=== PATIENT | female | born 1950 | race Hispanic/Latino ===

== ENCOUNTER 2019-06-11 21:07 | Emergency (ER) | payer MEDICARE ==
[2019-06-11 21:43] VITALS: BP 147/86
[2019-06-11] MEDS ORDERED: ONDANSETRON 4 MG ODT TAB ONE (22:42)
[2019-06-11] MEDS ORDERED: ONDANSETRON 4 MG ODT TAB PO ONE (22:44)
[2019-06-11] MEDS ORDERED: ONDANSETRON 4 MG/2 ML INJ ONE (22:49)
[2019-06-11] MEDS ORDERED: SODIUM CHLORIDE 0.9% 1000 ML 1,000 ML ONE (22:49)
[2019-06-11] MEDS ORDERED: SODIUM CHLORIDE 0.9% 1000 ML 1,000 ML IV ONE (23:08)
[2019-06-11] MEDS ORDERED: ONDANSETRON 4 MG/2 ML INJ IV ONE (23:10)
[2019-06-11 23:27] LABS: Basophils % (Auto) 0.2 % (0.0-1.8); Hemoglobin 12.2 gm/dl (11.8-15.2); Lymphocytes # (Auto) 1.4 K/mm3 (1.2-5.4); Lymphocytes % (Auto) 10.2 % (13.4-35.0); Mean Corpuscular HGB Conc 34 % (32-34); Mean Corpuscular Volume 92 fl (84-94); Monocytes # (Auto) 0.8 K/mm3 (0.0-0.8); Monocytes % (Auto) 5.9 % (0.0-7.3); Platelet Count 539 K/mm3 (140-440); Red Blood Count 3.93 M/mm3 (3.65-5.03); Red Cell Distribution Width 13.5 % (13.2-15.2)
[2019-06-11 23:46] LABS: Alanine Aminotransferase 22 units/L (7-56); Albumin 4.7 g/dL (3.9-5); BUN/Creatinine Ratio 27; Blood Urea Nitrogen 19 mg/dL (9-20); Calcium 9.8 mg/dL (8.4-10.2); Hemolysis Index 18
[2019-06-12] MEDS ORDERED: ONDANSETRON 4 MG/2 ML INJ IV ONE (02:01)
[2019-06-12] MEDS ORDERED: FAMOTIDINE 20 MG/2 ML INJ IV ONE (02:01)
[2019-06-12] MEDS ORDERED: LACTATED RINGERS 1,000 ML IV ONE (02:01)
[2019-06-12] MEDS ORDERED: MORPHINE 2 MG/1 ML INJ IV ONE (02:02)
--- NOTE | 2019-06-12 03:06 | Cat Scan Report ---
CT ABDOMEN AND PELVIS WITH CONTRAST INDICATION: Lower abdominal pain with nausea and vomiting. COMPARISON: No relevant prior imaging study available. TECHNIQUE: Axial, coronal and sagittal CT imaging of the abdomen and pelvis was performed after inje ction of 100 cc Omnipaque [address] scans at this location are performed using CT dose re duction for ALARA by means of automated exposure control. FINDINGS: LOWER CHEST: No significant abnormality. LIVER: No significant abnormality. BILIARY: No significant abnormality. PANCREAS: No significant abnormality. SPLEEN: No significant abnormality. ADRENALS: No significant abnormality. KIDNEYS AND URETERS: No significant abnormality. GI TRACT: No significant abnormality of the stomach, small bowel or colon. Unremarkable appendix. PERITONEUM: No free fluid. No free air. No fluid collection. LYMPH NODES: No significant adenopathy. VASCULATURE: The aorta and its visualized branches are patent and normal in caliber with mild aortoil iac atherosclerosis. URINARY BLADDER: No significant abnormality. REPRODUCTIVE ORGANS: Prior hysterectomy. No significant abnormality. ADDITIONAL FINDINGS: None. SKELETAL SYSTEM: No acute abnormality. There is moderate thoracolumbar scoliosis. IMPRESSION: No acute abnormality of the abdomen or pelvis. Signer Name: Khoa Miranda MD Signed: 06/12/2019 3:02 AM Workstation Name: [id number]
[2019-06-12 04:53] LABS: Bilirubin,Urine NEG (Negative); Blood,Urine NEG (Negative); Color,Urine Yellow (Yellow); Mucus,Urine 1+ /HPF; Protein,Urine <15 mg/dL mg/dL (Negative); Urobilinogen,Urine < 2.0 mg/dL (<2.0)
[2019-06-12] MEDS ORDERED: POTASSIUM CHLORIDE ER 20 MEQ TAB PO ONE (05:02)
--- NOTE | 2019-06-12 06:37 | Emergency Department Report ---
ED N/V/D HPI - General Chief complaint: Nausea/Vomiting/Diarrhea Stated complaint: NAUSEA AND VOMITING X 6 DAYS Source: patient, EMS Mode of arrival: Ambulatory Limitations: No Limitations - History of Present Illness Initial comments: Patient is 68-year-old white female with no past medical history except depression and anxiety who presents to the ED with complaint of acute onset persistent intermittent nausea and vomiting and diffuse abdominal pain, generalized weakness and lack of appetite for the last 6 days. Patient states that she has not been able to keep anything down especially in the last 24 hours. Patient denies dizziness, chest pain, shortness of breath, fever, chills, dysuria, diarrhea, urinary frequency and urgency, palpitations, syncope, headache, change in vision or vaginal bleeding. Patient states that no one else at home is at similar symptoms. MD complaint: nausea, vomiting, abdominal pain -: Sudden, days(s) (6) Description of Vomiting: food contents Associated Abdominal Pain: Yes (diffuse) Location: diffuse Radiation: none Severity: moderate Pain Scale: 6 Quality: cramping, aching, dull Consistency: intermittent Improves with: none Worsens with: vomiting Context: possible food poisoning Associated Symptoms: denies other symptoms, myalgias, loss of appetite, malaise, nausea/vomiting. denies: chest pain, diaphoresis, fever/chills, headaches, rash, dysuria, shortness of breath, syncope, weakness - Related Data Previous Rx's Medication Instructions Recorded Last Taken Type Dicyclomine [Bentyl] 20 mg PO Q6H PRN #24 tablet 06/12/19 Unknown Rx Famotidine [Pepcid] 20 mg PO Q12H #60 tablet 06/12/19 Unknown Rx Ondansetron [Zofran Odt] 4 mg PO Q6HR PRN #20 tab.rapdis 06/12/19 Unknown Rx Allergies Allergy/AdvReac Type Severity Reaction Status Date / Time No Known Allergies Allergy Verified 06/11/19 21:12 ED Review of Systems ROS: Stated complaint: NAUSEA AND VOMITING X 6 DAYS Other details as noted in HPI Constitutional: malaise, weakness. denies: chills, fever Eyes: denies: eye pain, eye discharge, vision change ENT: denies: ear pain, throat pain Respiratory: denies: cough, shortness of breath, wheezing Cardiovascular: denies: chest pain, palpitations Endocrine: no symptoms reported Gastrointestinal: abdominal pain, nausea, vomiting. denies: diarrhea Genitourinary: denies: urgency, dysuria, discharge Musculoskeletal: arthralgia, myalgia. denies: back pain, joint swelling Skin: denies: rash, lesions Neurological: denies: headache, weakness, paresthesias Psychiatric: denies: anxiety, depression Hematological/Lymphatic: denies: easy bleeding, easy bruising ED Past Medical Hx - Past Medical History Previous Medical History?: Yes Hx Psychiatric Treatment: Yes (depression) - Surgical History Past Surgical History?: No - Social History Smoking Status: Never Smoker Substance Use Type: None - Medications Home Medications: Home Medications Medication Instructions Recorded Confirmed Last Taken Type Dicyclomine [Bentyl] 20 mg PO Q6H PRN #24 tablet 06/12/19 Unknown Rx Famotidine [Pepcid] 20 mg PO Q12H #60 tablet 06/12/19 Unknown Rx Ondansetron [Zofran Odt] 4 mg PO Q6HR PRN #20 tab.rapdis 06/12/19 Unknown Rx ED Physical Exam - General Limitations: No Limitations General appearance: alert, in no apparent distress - Head Head exam: Present: atraumatic, normocephalic, normal inspection - Eye Eye exam: Present: normal appearance, PERRL, EOMI Pupils: Present: normal accommodation - ENT ENT exam: Present: normal exam, normal orophraynx, mucous membranes moist, TM's normal bilaterally, normal external ear exam - Neck Neck exam: Present: normal inspection, full ROM - Respiratory Respiratory exam: Present: normal lung sounds bilaterally. Absent: respiratory distress, wheezes, rales, rhonchi, chest wall tenderness, accessory muscle use, decreased breath sounds, prolonged expiratory - Cardiovascular Cardiovascular Exam: Present: regular rate, normal rhythm, normal heart sounds. Absent: systolic murmur, diastolic murmur, rubs, gallop - GI/Abdominal GI/Abdominal exam: Present: soft, normal bowel sounds. Absent: tenderness, guarding, hyperactive bowel sounds, hypoactive bowel sounds - Extremities Exam Extremities exam: Present: normal inspection, full ROM, normal capillary refill - Back Exam Back exam: Present: normal inspection, full ROM. Absent: tenderness, CVA tenderness (R), CVA tenderness (L), muscle spasm, paraspinal tenderness - Neurological Exam Neurological exam: Present: alert, oriented X3, CN II-XII intact, normal gait, reflexes normal - Psychiatric Psychiatric exam: Present: normal affect, normal mood - Skin Skin exam: Present: warm, dry, intact, normal color. Absent: rash ED Course Vital Signs 06/11/19 06/11/19 21:41 22:40 Temperature 97.7 F 97.7 F Pulse Rate 77 76 Respiratory 18 18 Rate Blood Pressure 147/86 147/86 O2 Sat by Pulse 99 99 Oximetry ED Medical Decision Making - Lab Data Result diagrams: 06/11/19 23:14 06/11/19 23:14 - Radiology Data Radiology results: report reviewed, image reviewed Findings [facility] [address] [place] [address] Cat Scan Report Signed Patient: TEN DUBON MR#: [id number] [birth year] : 1950 Acct:[id number] Age/Sex: 68 / F ADM Date: 06/11/19 Loc: ED Attending Dr: Ordering Physician: NAVI MOREL Date of Service: 06/12/19 Procedure(s): CT abdomen pelvis w con Accession Number(s): [id number] cc: NAVI MOREL CT ABDOMEN AND PELVIS WITH CONTRAST INDICATION: Lower abdominal pain with nausea and vomiting. COMPARISON: No relevant prior imaging study available. TECHNIQUE: Axial, coronal and sagittal CT imaging of the abdomen and pelvis was performed after injection of 100 cc Omnipaque [address] scans at this location are performed using CT dose reduction for ALARA by means of automated exposure control. FINDINGS: LOWER CHEST: No significant abnormality. LIVER: No significant abnormality. BILIARY: No significant abnormality. PANCREAS: No significant abnormality. SPLEEN: No significant abnormality. ADRENALS: No significant abnormality. KIDNEYS AND URETERS: No significant abnormality. GI TRACT: No significant abnormality of the stomach, small bowel or colon. Unremarkable appendix. PERITONEUM: No free fluid. No free air. No fluid collection. LYMPH NODES: No significant adenopathy. VASCULATURE: The aorta and its visualized branches are patent and normal in caliber with mild aortoiliac atherosclerosis. URINARY BLADDER: No significant abnormality. REPRODUCTIVE ORGANS: Prior hysterectomy. No significant abnormality. ADDITIONAL FINDINGS: None. SKELETAL SYSTEM: No acute abnormality. There is moderate thoracolumbar scoliosis. IMPRESSION: No acute abnormality of the abdomen or pelvis. Signer Name: Khoa Miranda MD Signed: 06/12/2019 3:02 AM Workstation Name: [id number] Transcribed By: MARTHA Dictated By: Khoa Miranda MD Electronically Authenticated By: Khoa Miranda MD Signed Date/Time: 06/12/19301 DD/ 7 TD/TT: - Medical Decision Making This is a 68-year-old female who presented to the ED with persistent nausea and vomiting and diffuse abdominal pain for 6 days with generalized weakness and lack of appetite. In the ED, patient is alert and oriented x3 and is not in any distress. Lab test results were reviewed and are positive for acute leukocytosis of 13,900, mild hypokalemia of 3.3 mmol/L, mild hyponatremia of 135 mmol/L, mild hypochloremia of 95.9 mmol/L and mildly elevated lipase of 67. Urinalysis is unremarkable. Abdomen pelvis CT scan with contrast shows no acute abdomen and pelvis abnormalities. Patient was treated with antiemetics, antacids and pain medications and also given normal saline 1 L IV bolus, in addition to potassium chloride 40 mEq p.o. x1. On reevaluation, patient felt better and kept oral fluids in the ED. Patient's pain is well controlled with medications as well as nausea. Patient was discharged home on antiemetics, antispasmodics as well as antacids. Patient symptoms are likely viral based on the history and physical exam as well as lab test results. Patient was advised to maintain a clear liquid diet for 12-24 hrs. and to take medications as needed and follow-up with the primary care physician in 5 to 7 days for reevaluation or return to the ED immediately if symptoms get worse. - Differential Diagnosis viral gastroenteritis; Dehydration; Hypokalemia; UTI; CAD Critical care attestation.: If time is entered above; I have spent that time in minutes in the direct care of this critically ill patient, excluding procedure time. ED Disposition Clinical Impression: Nausea and vomiting in adult patient, Viral gastroenteritis GERD (gastroesophageal reflux disease) Qualifiers: Esophagitis presence: without esophagitis Qualified Code(s): K21.9 - Gastro- esophageal reflux disease without esophagitis Abdominal pain Qualifiers: Abdominal location: generalized Qualified Code(s): R10.84 - Generalized abd ominal pain Disposition: DC-01 TO HOME OR SELFCARE Is pt being admited?: No Does the pt Need Aspirin: No Condition: Stable Instructions: Gastroenteritis (ED), Gastroesophageal Reflux Disease (ED), Acute Nausea and Vomiting (ED), Abdominal Pain (ED) Additional Instructions: Your lab test results are all nonactionable and the abdomen pelvis CT scan with contrast also was normal. Your symptoms are likely due to a viral gastroenteritis or viral syndrome based on the presentation and test results. Therefore maintain a clear liquid diet for 12 to 24 hours, take medication as needed for nausea and vomiting and pain as advised. Follow-up with your primary care physician in 5 to 7 days for reevaluation. Return to the ED immediately if symptoms get worse. Prescriptions: Dicyclomine [Bentyl] 20 mg PO Q6H PRN #24 tablet PRN Reason: Pain , Severe (7-10) Famotidine [Pepcid] 20 mg PO Q12H #60 tablet Ondansetron [Zofran Odt] 4 mg PO Q6HR PRN #20 tab.rapdis PRN Reason: Nausea Referrals: [facility] [Outside] - 3-5 Days Time of Disposition: 06:35 Print Language: TRINIDADIAN
[2019-06-12] MEDS ORDERED: ONDANSETRON 4 MG/2 ML INJ ONE (06:53)
== END 2019-06-12 06:50 | disposition home or self-care (01) ==
LOC: EDSEX → ED 21:07
DX: A08.4 Viral intestinal infection, unspecified (principal); K21.9 Gastro-esophageal reflux disease without esophagitis; F32.9 Major depressive disorder, single episode, unspecified; R11.2 Nausea with vomiting, unspecified; Z79.899 Other long term (current) drug therapy
CPT/HCPCS: 36415; 74177; 80053; 81001; 83690; 84484; 85025; 96361; 96374; 96375; 96376; 99284; J2270; J2405; J7030; J7120; Q9967; Q0162

== ENCOUNTER 2019-07-07 16:31 | Emergency (ER) | payer MEDICARE ==
--- NOTE | 2019-07-07 17:04 | Emergency Department Report ---
ED General Adult HPI - General Chief complaint: Nausea/Vomiting/Diarrhea Stated complaint: N/V Time Seen by Provider: 07/07/19 17:02 Source: EMS Mode of arrival: Stretcher Limitations: No Limitations - Related Data Previous Rx's Medication Instructions Recorded Last Taken Type Dicyclomine [Bentyl] 20 mg PO Q6H PRN #24 tablet 06/12/19 Unknown Rx Famotidine [Pepcid] 20 mg PO Q12H #60 tablet 06/12/19 Unknown Rx Ondansetron [Zofran Odt] 4 mg PO Q6HR PRN #20 tab.rapdis 06/12/19 Unknown Rx Allergies Allergy/AdvReac Type Severity Reaction Status Date / Time No Known Allergies Allergy Verified 06/11/19 21:12 ED Review of Systems ROS: Stated complaint: N/V Other details as noted in HPI ED Past Medical Hx - Past Medical History Previous Medical History?: Yes Hx Psychiatric Treatment: Yes (depression) Additional medical history: anxiety,depression - Surgical History Past Surgical History?: No - Social History Smoking Status: Never Smoker Substance Use Type: None - Medications Home Medications: Home Medications Medication Instructions Recorded Confirmed Last Taken Type Dicyclomine [Bentyl] 20 mg PO Q6H PRN #24 tablet 06/12/19 Unknown Rx Famotidine [Pepcid] 20 mg PO Q12H #60 tablet 06/12/19 Unknown Rx Ondansetron [Zofran Odt] 4 mg PO Q6HR PRN #20 tab.rapdis 06/12/19 Unknown Rx ED Physical Exam - General Limitations: No Limitations ED Medical Decision Making - Radiology Data Radiology results: report reviewed, image reviewed Print Report Referring Physician: SEBASTIAN CRUZ Patient Name: TEN DUBON Date of : 1950 Sex: Female Report Date: 2019-06-12 Report Status: Finalized Findings [facility] [address] [place] [address] Cat Scan Report Signed Patient: TEN DUBON MR#: [id number] [birth year] : 1950 Acct:[id number] Age/Sex: 68 / F ADM Date: 06/11/19 Loc: ED Attending Dr: Ordering Physician: NAVI MOREL Date of Service: 06/12/19 Procedure(s): CT abdomen pelvis w con Accession Number(s): [id number] cc: NAVI MOREL CT ABDOMEN AND PELVIS WITH CONTRAST INDICATION: Lower abdominal pain with nausea and vomiting. COMPARISON: No relevant prior imaging study available. TECHNIQUE: Axial, coronal and sagittal CT imaging of the abdomen and pelvis was performed after injection of 100 cc Omnipaque [address] scans at this location are performed using CT dose reduction for ALARA by means of automated exposure control. FINDINGS: LOWER CHEST: No significant abnormality. LIVER: No significant abnormality. BILIARY: No significant abnormality. PANCREAS: No significant abnormality. SPLEEN: No significant abnormality. ADRENALS: No significant abnormality. KIDNEYS AND URETERS: No significant abnormality. GI TRACT: No significant abnormality of the stomach, small bowel or colon. Unremarkable appendix. PERITONEUM: No free fluid. No free air. No fluid collection. LYMPH NODES: No significant adenopathy. VASCULATURE: The aorta and its visualized branches are patent and normal in caliber with mild aortoiliac atherosclerosis. URINARY BLADDER: No significant abnormality. REPRODUCTIVE ORGANS: Prior hysterectomy. No significant abnormality. ADDITIONAL FINDINGS: None. SKELETAL SYSTEM: No acute abnormality. There is moderate thoracolumbar scoliosis. IMPRESSION: No acute abnormality of the abdomen or pelvis. Signer Name: Khoa Miranda MD Signed: 06/12/2019 3:02 AM Workstation Name: [id number] Transcribed By: MARTHA Dictated By: Khoa Miranda MD Electronically Authenticated By: Khoa Miranda MD Signed Date/Time: 06/12/19 0302 DD/ 0258 TD/TT: Critical care attestation.: If time is entered above; I have spent that time in minutes in the direct care of this critically ill patient, excluding procedure time. ED Disposition Condition: Stable
[2019-07-07 17:22] LABS: Hematocrit 37.5 % (30.3-42.9); Hemoglobin 13.1 gm/dl (10.1-14.3); Mean Corpuscular HGB Conc 35 % (30-34); Mean Corpuscular Volume 88 fl (79-97); Platelet Count 749 K/mm3 (140-440); Red Blood Count 4.25 M/mm3 (3.65-5.03); Red Cell Distribution Width 13.2 % (13.2-15.2)
[2019-07-07 17:40] LABS: Alanine Aminotransferase 38 units/L (7-56); Albumin 4.5 g/dL (3.9-5); BUN/Creatinine Ratio 30; Blood Urea Nitrogen 18 mg/dL (7-17); Calcium 9.4 mg/dL (8.4-10.2); Hemolysis Index 3
[2019-07-07] MEDS ORDERED: PANTOPRAZOLE 40 MG INJ IV ONE (18:19)
[2019-07-07] MEDS ORDERED: ONDANSETRON 4 MG/2 ML INJ IV ONE (18:19)
[2019-07-07] MEDS ORDERED: SODIUM CHLORIDE 0.9% 1000 ML 1,000 ML IV ONE (18:19)
--- NOTE | 2019-07-07 18:23 | Emergency Department Report ---
ED N/V/D HPI - General Chief complaint: Nausea/Vomiting/Diarrhea Stated complaint: N/V Time Seen by Provider: 07/07/19 17:02 Source: EMS Mode of arrival: Stretcher Limitations: No Limitations - History of Present Illness Initial comments: Patient is 68 years old female with no significant past medical history except for depression. Patient presented to the ER complaining of nausea, vomiting and epigastric abdominal pain for the last 5 days. Patient stated that she is unable to keep anything down. Patient denied any fever or chills. No chest pain or shortness of breath. Patient was seen here approximately 1 month ago with similar symptoms had a negative CT abdomen and pelvis with IV contrast. Patient followed by GI and had an upper endoscopy which showed gastritis. MD complaint: nausea, vomiting, abdominal pain -: days(s) (5) Description of Vomiting: food contents Associated Abdominal Pain: Yes Location: epigastric Radiation: none Severity: mild Quality: other (Burning) Consistency: intermittent Worsens with: eating Associated Symptoms: denies other symptoms - Related Data Previous Rx's Medication Instructions Recorded Last Taken Type Dicyclomine [Bentyl] 20 mg PO Q6H PRN #24 tablet 06/12/19 Unknown Rx Famotidine [Pepcid] 20 mg PO Q12H #60 tablet 06/12/19 Unknown Rx Ondansetron [Zofran Odt] 4 mg PO Q6HR PRN #20 tab.rapdis 06/12/19 Unknown Rx Allergies Allergy/AdvReac Type Severity Reaction Status Date / Time No Known Allergies Allergy Verified 06/11/19 21:12 ED Review of Systems ROS: Stated complaint: N/V Other details as noted in HPI Comment: All other systems reviewed and negative Constitutional: denies: chills, fever Respiratory: denies: cough, shortness of breath, SOB with exertion Cardiovascular: denies: chest pain, palpitations Gastrointestinal: abdominal pain, nausea, vomiting. denies: diarrhea, constipation, hematemesis, melena, hematochezia Musculoskeletal: denies: back pain Neurological: denies: headache, weakness, numbness, paresthesias, confusion, abnormal gait ED Past Medical Hx - Past Medical History Previous Medical History?: Yes Hx Psychiatric Treatment: Yes (depression) Additional medical history: anxiety,depression - Surgical History Past Surgical History?: No - Social History Smoking Status: Never Smoker - Medications Home Medications: Home Medications Medication Instructions Recorded Confirmed Last Taken Type Dicyclomine [Bentyl] 20 mg PO Q6H PRN #24 tablet 06/12/19 Unknown Rx Famotidine [Pepcid] 20 mg PO Q12H #60 tablet 06/12/19 Unknown Rx Ondansetron [Zofran Odt] 4 mg PO Q6HR PRN #20 tab.rapdis 06/12/19 Unknown Rx ED Physical Exam - General Limitations: No Limitations General appearance: alert, in no apparent distress - Head Head exam: Present: atraumatic, normocephalic, normal inspection - ENT ENT exam: Present: mucous membranes dry - Neck Neck exam: Present: normal inspection, full ROM. Absent: tenderness, meningismus, lymphadenopathy, thyromegaly - Respiratory Respiratory exam: Present: normal lung sounds bilaterally - Cardiovascular Cardiovascular Exam: Present: regular rate, normal rhythm, normal heart sounds - GI/Abdominal GI/Abdominal exam: Present: soft. Absent: distended, tenderness, guarding, r ebound, rigid, organomegaly, mass, bruit, pulsatile mass, hernia - Extremities Exam Extremities exam: Present: normal inspection, full ROM, normal capillary refill. Absent: pedal edema, calf tenderness - Back Exam Back exam: Present: normal inspection, full ROM. Absent: CVA tenderness (R), CVA tenderness (L) - Neurological Exam Neurological exam: Present: alert, oriented X3, CN II-XII intact, normal gait, reflexes normal - Psychiatric Psychiatric exam: Present: normal mood. Absent: suicidal ideation - Skin Skin exam: Present: warm, dry, intact ED Course Vital Signs 07/07/19 07/07/19 07/07/19 17:45 17:47 18:00 Temperature 98.9 F Pulse Rate 74 68 Respiratory 19 20 Rate Blood Pressure 159/81 159/81 Blood Pressure 159/81 [Right] O2 Sat by Pulse 100 98 Oximetry 07/07/19 18:30 Temperature Pulse Rate 74 Respiratory 18 Rate Blood Pressure 159/80 Blood Pressure 165/81 [Right] O2 Sat by Pulse 96 Oximetry ED Medical Decision Making - Lab Data Result diagrams: 07/07/19 17:06 07/07/19 17:06 - EKG Data -: EKG Interpreted by Vt EKG shows normal: sinus rhythm Rate: normal - EKG Data Interpretation: no acute changes - Radiology Data Radiology results: report reviewed - Medical Decision Making Patient is 68 years old female with no significant past medical history except for depression. Patient presented to the ER complaining of nausea, vomiting and epigastric abdominal pain for the last 5 days. Patient stated that she is unable to keep anything down. Patient denied any fever or chills. No chest pain or shortness of breath. Patient was seen here approximately 1 month ago with similar symptoms had a negative CT abdomen and pelvis with IV contrast. Patient followed by GI and had an upper endoscopy which showed gastritis. Patient received Zofran, Reglan and Protonix. Patient stated that she is feeling much better. Labs reviewed and is unremarkable except a UTI for which patient received Rocephin 1 g IV. Patient given prescription for Zofran, Reglan and ciprofloxacin and advised to follow-up with her primary care physician in the next 2 to 3 days and to return to the ER if she develop any new symptoms. Critical care attestation.: If time is entered above; I have spent that time in minutes in the direct care of this critically ill patient, excluding procedure time. ED Disposition Clinical Impression: Nausea and vomiting, Gastritis, UTI (urinary tract infection) Disposition: TO HOME OR SELFCARE Is pt being admited?: No Condition: Stable Instructions: Acute Nausea and Vomiting (ED), Urinary Tract Infection in Women (ED) Referrals: PRIMARY CARE, [Primary Care Provider] - 3-5 Days
[2019-07-07 18:59] VITALS: BP 165/81
[2019-07-07] MEDS: POTASSIUM CHLORIDE 10 MEQ 10 MEQ/100 ML BAG IV SCH ×2 (19:01→22:25)
--- NOTE | 2019-07-07 19:17 | XRay Report ---
ABDOMEN SUPINE AND ERECT INDICATION / CLINICAL INFORMATION: MAIN: abdominal pain X 1 MONTH. COMPARISON: None available. FINDINGS: Thoracolumbar scoliosis. Bowel gas pattern is nonspecific, not indicative of obstruction. No obvious abnormal mass Accompanying chest radiograph shows no free air or acute disease. IMPRESSION: Negative study. Signer Name: Spenser Chew MD Signed: 07/07/2019 7:13 PM Workstation Name: [id number]
[2019-07-07] MEDS ORDERED: METOCLOPRAMIDE 10 MG/2 ML INJ IV ONE (21:28)
[2019-07-07] MEDS ORDERED: SODIUM CHLORIDE 0.9% 1000 ML 1,000 ML ONE (21:31)
[2019-07-07 22:51] LABS: Bacteria,Urine 1+ /HPF (Negative); Bilirubin,Urine NEG (Negative); Blood,Urine NEG (Negative); Color,Urine Yellow (Yellow); Mucus,Urine FEW /HPF; Urobilinogen,Urine < 2.0 mg/dL (<2.0)
[2019-07-07] MEDS ORDERED: cefTRIAXone/NS 1 GM/50 ML 1 GM/50 ML BAG IV ONE (23:02)
[2019-07-07] MEDS ORDERED: levoFLOXacin 500 MG TAB ONE (23:48)
[2019-07-07] MEDS ORDERED: levoFLOXacin 500 MG TAB PO ONE (23:49)
== END 2019-07-08 01:24 | disposition home or self-care (01) ==
LOC: ED 16:31
DX: K29.70 Gastritis, unspecified, without bleeding (principal); N39.0 Urinary tract infection, site not specified; R11.2 Nausea with vomiting, unspecified; F32.9 Major depressive disorder, single episode, unspecified; F41.9 Anxiety disorder, unspecified; Z79.899 Other long term (current) drug therapy
CPT/HCPCS: 36415; 74022; 80053; 81001; 82550; 83735; 84443; 84484; 85027; 85610; 87086; 93005; 93010; 96361; 96374; 96375; 99285; C9113; J2405; J2765; J3480; J7030; J0696

== ENCOUNTER 2019-07-09 08:06 | Emergency (ER) | payer MEDICARE ==
[2019-07-09 08:53] LABS: Mean Corpuscular HGB Conc 34 % (30-34); Mean Corpuscular Volume 90 fl (79-97); Platelet Count 717 K/mm3 (140-440); Red Blood Count 4.23 M/mm3 (3.65-5.03)
[2019-07-09 09:14] LABS: Alanine Aminotransferase 31 units/L (7-56); Albumin 4.1 g/dL (3.9-5); BUN/Creatinine Ratio 28; Blood Urea Nitrogen 17 mg/dL (7-17); Calcium 9.2 mg/dL (8.4-10.2); Hemolysis Index 20
--- NOTE | 2019-07-09 09:53 | Emergency Department Report ---
HPI - General Chief Complaint: Altered Mental Status Time Seen by Provider: 07/09/19 09:40 - HPI HPI: Room 24 The patient is a 68-year-old female present with a chief complaint of altered mental status. The patient was seen in this ED 07/07/2019 for nausea vomiting and was discharged. Nursing reports the patient never left the emergency department has been wandering in the waiting room. When asked why she never left the patient states "I kept having nausea and vomiting." The patient is oriented times to (self and year) but is unable to name the hospital she is in. When asked if she lives with anyone the patient replies her brother and that he should be off of work today. ED Past Medical Hx - Past Medical History Previous Medical History?: Yes Hx Psychiatric Treatment: Yes (depression) Additional medical history: anxiety,depression - Surgical History Past Surgical History?: No - Family History Family history: no significant - Social History Smoking Status: Never Smoker - Medications Home Medications: Home Medications Medication Instructions Recorded Confirmed Last Taken Type Dicyclomine [Bentyl] 20 mg PO Q6H PRN #24 tablet 06/12/19 Unknown Rx Famotidine [Pepcid] 20 mg PO Q12H #60 tablet 06/12/19 Unknown Rx Ondansetron [Zofran Odt] 4 mg PO Q6HR PRN #20 tab.rapdis 06/12/19 Unknown Rx Ciprofloxacin HCl [Ciprofloxacin 500 mg PO Q12HR #14 tab 07/07/19 Unknown Rx TAB] Metoclopramide [Reglan] 10 mg PO TID PRN #20 tab 07/07/19 Unknown Rx Ondansetron [Zofran Odt] 4 mg PO Q8HR PRN #14 tab.rapdis 07/07/19 Unknown Rx ED Review of Systems ROS: Stated complaint: AMS Other details as noted in HPI Gastrointestinal: nausea, vomiting Physical Exam - Physical Exam Vital Signs: Vital Signs 07/09/19 08:18 Temperature 98.0 F Pulse Rate 107 H Respiratory 16 Rate Blood Pressure 158/114 [Right] O2 Sat by Pulse 99 Oximetry Physical Exam: GENERAL: The patient is well-developed well-nourished female sitting on stretcher not appearing to be in acute distress HEENT: Normocephalic. Atraumatic. Extraocular motions are intact. Patient has moist mucous membranes. NECK: Supple. No meningitic signs are noted. Trachea midline CHEST/LUNGS: Clear to auscultation. There is no respiratory distress noted. HEART/CARDIOVASCULAR: Regular. There is no tachycardia. There is no gallop rub or murmur. ABDOMEN: Abdomen is soft, nontender. Patient has normal bowel sounds. There is no abdominal distention. SKIN: There is no rash. There is no edema. There is no diaphoresis. NEURO: The patient is awake, alert, and oriented. The patient is cooperative. The patient has no focal neurologic deficits. The patient has normal speech. Cranial nerves II through XII grossly intact MUSCULOSKELETAL: There is no evidence of acute injury. ED Course Vital Signs 07/09/19 08:18 Temperature 98.0 F Pulse Rate 107 H Respiratory 16 Rate Blood Pressure 158/114 [Right] O2 Sat by Pulse 99 Oximetry ED Medical Decision Making - Lab Data Result diagrams: 07/09/19 08:31 07/09/19 08:31 - Radiology Data Radiology results: report reviewed (CT head), image reviewed (CT head) Findings [facility] [address] [place] [address] Cat Scan Report Signed Patient: TEN DUBON MR#: [id number] [birth year] : 1950 Acct:[id number] Age/Sex: 68 / F ADM Date: 07/09/19 Loc: ED Attending Dr: Ordering Physician: JULIAN CORTEZ MD Date of Service: 07/09/19 Procedure(s): CT head/brain wo con Accession Number(s): [id number] cc: JULIAN CORTEZ MD CT HEAD WITHOUT CONTRAST INDICATION / CLINICAL INFORMATION: MAIN: Confusion, AMSX 3 DA YS. TECHNIQUE: All CT scans at this location are performed using CT dose reduction for ALARA by means of automated exposure control. COMPARISON: None available. FINDINGS: HEMORRHAGE: No evidence of intracranial hemorrhage or extra-axial fluid collection. EXTRA-AXIAL SPACES: Cortical sulci, sylvian f issures and basilar cisterns have an unremarkable appearance. VENTRICULAR SYSTEM: The ventricular system is of normal size and configuration. CEREBRAL PARENCHYMA: Bilateral chronic relatively symmetric white matter hypodensities. There is no indication of recent infarction. MIDLINE SHIFT OR HERNIATION: There is no mass effect. CEREBELLUM / BRAINSTEM: Brainstem and cerebellum have an unremarkable appearance. INTRACRANIAL VESSELS:No abnormalities are identified on this noncontrast head CT. ORBITS: visualized portions of the orbits have an unremarkable appearance. SOFT TISSUES of HEAD: No significant abnormality. CALVARIUM: Evaluation of bone windows reveals no abnormalities. PARANASAL SINUSES / MASTOID AIR CELLS: Paranasal sinuses are free from inflammatory mucosal disease. Mastoid air cells are normally pneumatized. ADDITIONAL FINDINGS: None. IMPRESSION: 1. No acute intracranial abnormality. 2. Chronic white matter microangiopathy. Signer Name: Ender Mckeon MD Signed: 07/09/2019 10:41 AM Workstation Name: [id number] Transcribed By: REF Dictated By: ENDER MCKEON MD Electronically Authenticated By: ENDER MCKEON MD Signed Date/Time: 07/09/19 1041 DD/ 1038 TD/TT: - Differential Diagnosis Altered mental status, dementia Critical care attestation.: If time is entered above; I have spent that time in minutes in the direct care of this critically ill patient, excluding procedure time. ED Disposition Condition: Stable Referrals: PRIMARY CAREMD [Primary Care Provider] - 3-5 Days
--- NOTE | 2019-07-09 10:46 | Cat Scan Report ---
CT HEAD WITHOUT CONTRAST INDICATION / CLINICAL INFORMATION: MAIN: Confusion, AMSX 3 DAYS. TECHNIQUE: All CT scans at this location are performed using CT dose reduction for ALARA by means of automated e xposure control. COMPARISON: None available. FINDINGS: HEMORRHAGE: No evidence of intracranial hemorrhage or extra-axial fluid collection. EXTRA-AXIAL SPACES: Cortical sulci, sylvian fissures and basilar cisterns have an unremarkable appear ance. VENTRICULAR SYSTEM: The ventricular system is of normal size and configuration. CEREBRAL PARENCHYMA: Bilateral chronic relatively symmetric white matter hypodensities. There is no i ndication of recent infarction. MIDLINE SHIFT OR HERNIATION: There is no mass effect. CEREBELLUM / BRAINSTEM: Brainstem and cerebellum have an unremarkable appearance. INTRACRANIAL VESSELS:No abnormalities are identified on this noncontrast head CT. ORBITS: visualized portions of the orbits have an unremarkable appearance. SOFT TISSUES of HEAD: No significant abnormality. CALVARIUM: Evaluation of bone windows reveals no abnormalities. PARANASAL SINUSES / MASTOID AIR CELLS: Paranasal sinuses are free from inflammatory mucosal disease. Mastoid air cells are normally pneumatized. ADDITIONAL FINDINGS: None. IMPRESSION: 1. No acute intracranial abnormality. 2. Chronic white matter microangiopathy. Signer Name: Ender Raza MD Signed: 07/09/2019 10:41 AM Workstation Name: [id number]
[2019-07-09] MEDS ORDERED: POTASSIUM CHLORIDE ER 20 MEQ TAB PO ONE (11:51)
[2019-07-09] MEDS ORDERED: cefTRIAXone/NS 1 GM/50 ML 1 GM/50 ML BAG IV ONE (17:39)
[2019-07-09] MEDS ORDERED: ONDANSETRON 4 MG/2 ML INJ IV ONE (17:41)
[2019-07-09] MEDS ORDERED: ZIPRASIDONE MESYLATE 20 MG VIAL IM ONE (17:48)
[2019-07-09] MEDS ORDERED: WATER FOR INJ Sterile (PF) 10 ML ONE (17:52)
[2019-07-09] MEDS ORDERED: D5W/0.9% NACL 1,000 ML IV SCH ×2 (18:00)
[2019-07-09] MEDS ORDERED: diphenhydrAMINE 50 MG/ML VIAL IM ONE (18:38)
[2019-07-09] MEDS ORDERED: diphenhydrAMINE 50 MG/ML VIAL ONE (18:40)
[2019-07-09 19:32] LABS: BUN/Creatinine Ratio 29; Blood Urea Nitrogen 20 mg/dL (7-17); Hemolysis Index 53
[2019-07-09] MEDS ORDERED: LORazepam 2 MG/ML VIAL IM ONE (20:27)
--- NOTE | 2019-07-09 21:46 | Cat Scan Report ---
CT ABDOMEN AND PELVIS WITHOUT IV CONTRAST INDICATION: leukocytosis, n,v. COMPARISON: CT 06/13/2019 TECHNIQUE: All CT scans at this facility use dose modulation, automated exposure control, iterative reconstructi on or weight based dosing, when appropriate, to reduce radiation dose to as low as reasonably achieva ble. FINDINGS: Lung Bases: No significant abnormality. Skeletal System: No acute abnormality. ABDOMEN: Liver: No significant abnormality. Gallbladder: No significant abnormality. Bile Ducts: No significant abnormality. Pancreas: No significant abnormality. Spleen: No significant abnormality. Adrenals: No significant abnormality. Right Kidney: No significant abnormality. Left Kidney: No significant abnormality. Upper GI tract: No significant abnormality. Lymph Nodes: No significant adenopathy. Aorta: No significant abnormality. Additional Findings: No significant abnormality. PELVIS: Colon: No acute abnormality. Diverticulosis is noted. Urinary Bladder and Distal Ureters: The bladder is distended but otherwise unremarkable. Appendix: No significant abnormality. Lymph Nodes: No significant adenopathy. Additional Findings: None. IMPRESSION: 1. Within the limitations of non contrast technique, no acute process in the abdomen or pelvis. Signer Name: Kaveh Hicks MD Signed: 07/09/2019 9:42 PM Workstation Name: [id number]
[2019-07-09] MEDS ORDERED: LIDOCAINE-MPF (1%) 10 MG/1 ML VIAL 5 ML INFILTRATI ONE (22:35)
--- NOTE | 2019-07-09 22:40 | Emergency Department Report ---
Blank Doc - Documentation Documentation: As opposed to mental health mail room to verify the patient has been medically cleared. Patient did have a anion gap with low bicarb with a normal venous pH upon initial assessment. Several days ago patient had a UTI and was prescribed Levaquin. Since she was discharged patient never left the department and therefore did not have additional antibiotics and did not have much to eat or drink. Patient's bicarb and anion gap have improved spontaneously while being in the ED during the day. Additional testing revealed negative ketosis and negative lactic acidosis. Patient was belligerent, demented, and aggressive during ED stay and required Geodon, Benadryl, and Ativan in order to obtain additional testing. CT abdomen pelvis was negative for acute findings. IM Rocephin ordered for UTI in the ED since patient is unable to be compliant with taking pills at this time. Initial IV fluid orders canceled since patient's repeat BMP improved compared to a.m. values and patient was tolerating p.o. prior to sedation. Mild improvement in hyponatremia. Improvement in potassium level after ED treatment. CT ABDOMEN AND PELVIS WITHOUT IV CONTRAST INDICATION: leukocytosis, n,v. COMPARISON: CT 06/13/2019 TECHNIQUE: All CT scans at this facility use dose modulation, automated exposure control, iterative reconstruction or weight based dosing, when appropriate, to reduce radiation dose to as low as reasonably achievable. FINDINGS: Lung Bases: No significant abnormality. Skeletal System: No acute abnormality. ABDOMEN: Liver: No significant abnormality. Gallbladder: No significant abnormality. Bile Ducts: No significant abnormality. Pancreas: No significant abnormality. Spleen: No significant abnormality. Adrenals: No significant abnormality. Right Kidney: No significant abnormality. Left Kidney: No significant abnormality. Upper GI tract: No significant abnormality. Lymph Nodes: No significant adenopathy. Aorta: No significant abnormality. Additional Findings: No significant abnormality. PELVIS: Colon: No acute abnormality. Diverticulosis is noted. Urinary Bladder and Distal Ureters: The bladder is distended but otherwise unremarkable. Appendix: No significant abnormality. Lymph Nodes: No significant adenopathy. Additional Findings: None. IMPRESSION: 1. Within the limitations of non contrast technique, no acute process in the abdomen or pelvis. Patient is medically clear for inpatient psychiatric admission She will need continued treatment for UTI Keflex will be prescribed for UTI. Preliminary culture is suggestive of skin of possible contaminant with skin pamela
[2019-07-10 00:14] VITALS: BP 139/83
== END 2019-07-10 00:13 ==
LOC: ED 08:06
DX: R41.82 Altered mental status, unspecified (principal); R11.2 Nausea with vomiting, unspecified; F41.9 Anxiety disorder, unspecified; F32.9 Major depressive disorder, single episode, unspecified; K57.90 Diverticulosis of intestine, part unspecified, without perforation or abscess without bleeding; Z79.899 Other long term (current) drug therapy
CPT/HCPCS: 36415; 70450; 74176; 80048; 80053; 82010; 82140; 82805; 82962; 85027; 96372; 99285; J0696; J1200; J2060; J3486

== ENCOUNTER 2020-12-18 16:02 | Emergency (ER) | payer MEDICARE ==
[2020-12-18 22:25] LABS: Basophils % (Auto) 0.7 % (0.0-1.8); Eosinophils % (Auto) 0.7 % (0.0-4.3); Hematocrit 42.7 % (30.3-42.9); Hemoglobin 14.6 gm/dl (10.1-14.3); Lymphocytes # (Auto) 2.7 K/mm3 (1.2-5.4); Lymphocytes % (Auto) 43.2 % (13.4-35.0); Mean Corpuscular HGB Conc 34 % (30-34); Mean Corpuscular Volume 92 fl (79-97); Monocytes # (Auto) 0.4 K/mm3 (0.0-0.8); Monocytes % (Auto) 6.9 % (0.0-7.3); Platelet Count 400 K/mm3 (140-440); Red Blood Count 4.64 M/mm3 (3.65-5.03)
[2020-12-18 22:37] LABS: Alanine Aminotransferase 9 units/L (7-56); Albumin 4.6 g/dL (3.9-5); Blood Urea Nitrogen 15 mg/dL (7-17); Calcium 9.4 mg/dL (8.4-10.2); Hemolysis Index 27
[2020-12-18 22:50] LABS: BUN/Creatinine Ratio 21; Bilirubin,Direct < 0.2 mg/dL (0-0.2)
[2020-12-19] MEDS ORDERED: SODIUM CHLORIDE 0.9% 1000 ML 1,000 ML IV ONE (12:35)
[2020-12-19] MEDS ORDERED: DICYCLOMINE 20 MG/2 ML INJ IM ONE (12:35)
--- NOTE | 2020-12-19 12:39 | Emergency Department Report ---
ED Abdominal Pain HPI - General Chief Complaint: Abdominal Pain Stated Complaint: AB PAIN, REFLUX Time Seen by Provider: 12/19/20 12:32 Source: patient Mode of arrival: Ambulatory Limitations: No Limitations - History of Present Illness Initial Comments: There is a very pleasant 70-year-old female who presents to the emergency department with a chief complaint of nausea, vomiting, diarrhea and epigastric abdominal pain that has been present over the past 8 days. She is history of Crohn's disease and reports this feels like a bad flareup of it. She does have a GI doctor and is scheduled to see them in 1 week to have a colonoscopy and a biopsy of some lesions that were seen on her small intestine. She denies any bloody or bilious vomiting, bloody stools. She does report frequent dyspepsia. She has a past medical history of Crohn's and hypertension and her medications include amlodipine and [id number] Tylenol and Pepto-Bismol which have not been relieving her symptoms. She denies any associated fever, chills, night sweats, headache, dizziness, blurry vision, chest pain, shortness of breath, exertional shortness of breath or pain, weakness or any other associated symptoms. - Related Data Previous Rx's Medication Instructions Recorded Last Taken Type Dicyclomine [Bentyl] 20 mg PO Q6H PRN #24 tablet 06/12/19 Unknown Rx Famotidine [Pepcid] 20 mg PO Q12H #60 tablet 06/12/19 Unknown Rx Ondansetron [Zofran Odt] 4 mg PO Q6HR PRN #20 tab.rapdis 06/12/19 Unknown Rx Ciprofloxacin HCl [Ciprofloxacin 500 mg PO Q12HR #14 tab 07/07/19 Unknown Rx TAB] Metoclopramide [Reglan] 10 mg PO TID PRN #20 tab 07/07/19 Unknown Rx Ondansetron [Zofran Odt] 4 mg PO Q8HR PRN #14 tab.rapdis 07/07/19 Unknown Rx Ondansetron [Zofran Odt] 4 mg PO Q8HR PRN #20 tab.rapdis 07/09/19 Unknown Rx cephALEXin [Keflex] 500 mg PO Q12HR #10 cap 07/09/19 Unknown Rx Dicyclomine [Bentyl] 10 mg PO QID #30 capsule 12/19/20 Unknown Rx Ondansetron [Zofran Odt] 4 mg PO Q8HR #30 tab.rapdis 12/19/20 Unknown Rx Allergies Allergy/AdvReac Type Severity Reaction Status Date / Time No Known Allergies Allergy Verified 06/11/19 21:12 ED Review of Systems ROS: Stated complaint: AB PAIN, REFLUX Other details as noted in HPI Comment: All other systems reviewed and negative Constitutional: denies: chills, fever Eyes: denies: eye pain, eye discharge, vision change ENT: denies: ear pain, throat pain Respiratory: denies: cough, shortness of breath, wheezing Cardiovascular: denies: chest pain, palpitations Endocrine: no symptoms reported Gastrointestinal: as per HPI, abdominal pain, nausea, vomiting, diarrhea Genitourinary: denies: urgency, dysuria, discharge Musculoskeletal: denies: back pain, joint swelling, arthralgia Skin: denies: rash, lesions Neurological: denies: headache, weakness, paresthesias Psychiatric: denies: anxiety, depression Hematological/Lymphatic: denies: easy bleeding, easy bruising ED Past Medical Hx - Past Medical History Previous Medical History?: Yes Hx Hypertension: Yes Hx Psychiatric Treatment: Yes (depression) Additional medical history: anxiety,depression - Surgical History Past Surgical History?: No - Social History Smoking Status: Current Every Day Smoker Substance Use Type: None - Medications Home Medications: Home Medications Medication Instructions Recorded Confirmed Last Taken Type Dicyclomine [Bentyl] 20 mg PO Q6H PRN #24 tablet 06/12/19 Unknown Rx Famotidine [Pepcid] 20 mg PO Q12H #60 tablet 06/12/19 Unknown Rx Ondansetron [Zofran Odt] 4 mg PO Q6HR PRN #20 tab.rapdis 06/12/19 Unknown Rx Ciprofloxacin HCl [Ciprofloxacin 500 mg PO Q12HR #14 tab 07/07/19 Unknown Rx TAB] Metoclopramide [Reglan] 10 mg PO TID PRN #20 tab 07/07/19 Unknown Rx Ondansetron [Zofran Odt] 4 mg PO Q8HR PRN #14 tab.rapdis 07/07/19 Unknown Rx Ondansetron [Zofran Odt] 4 mg PO Q8HR PRN #20 tab.rapdis 03/09/20 Unknown Rx cephALEXin [Keflex] 500 mg PO Q12HR #10 cap 07/09/19 Unknown Rx Dicyclomine [Bentyl] 10 mg PO QID #30 capsule 12/19/20 Unknown Rx Ondansetron [Zofran Odt] 4 mg PO Q8HR #30 tab.rapdis 12/19/20 Unknown Rx ED Physical Exam - General Limitations: No Limitations General appearance: alert, in no apparent distress - Head Head exam: Present: atraumatic, normocephalic - Eye Eye exam: Present: normal appearance, PERRL, EOMI Pupils: Present: normal accommodation - ENT ENT exam: Present: normal exam, normal orophraynx, mucous membranes moist - Neck Neck exam: Present: normal inspection, full ROM. Absent: tenderness, menin gismus - Respiratory Respiratory exam: Present: normal lung sounds bilaterally. Absent: respiratory distress, wheezes, rales, rhonchi, stridor - Cardiovascular Cardiovascular Exam: Present: regular rate, normal rhythm, normal heart sounds. Absent: systolic murmur, diastolic murmur, rubs, gallop - GI/Abdominal GI/Abdominal exam: Present: soft, normal bowel sounds, other (Negative McBurney's point tenderness, negative Forrester sign, no rebound or guarding. No CVA tenderness bilaterally.). Absent: distended, tenderness, guarding, rebound, rigid - Extremities Exam Extremities exam: Present: normal inspection, full ROM, normal capillary refill. Absent: tenderness, calf tenderness - Back Exam Back exam: Present: normal inspection, full ROM. Absent: tenderness, CVA tenderness (R), CVA tenderness (L) - Neurological Exam Neurological exam: Present: alert, oriented X3, normal gait - Psychiatric Psychiatric exam: Present: normal affect, normal mood - Skin Skin exam: Present: warm, dry, intact, normal color. Absent: rash ED Course Vital Signs 12/18/20 12/19/20 20:07 15:42 Temperature 98.4 F Pulse Rate 71 70 Respiratory 18 16 Rate Blood Pressure 147/85 Blood Pressure 144/76 [Right] O2 Sat by Pulse 100 100 Oximetry - Reevaluation(s) Reevaluation #1: 12/19/20 12:38 Patient is nontoxic in no acute distress. Vital signs are stable. Abdominal exam is relatively benign. Lab work was ordered and overall is relatively normal other than a slightly low bicarb with a normal anion gap. I ordered IV fluids, antiemetics and pain medication, due to epigastric pain and her age did order an EKG and troponin as well as CT of the abdomen pelvis with IV contrast. 12/19/20 12:38 Reevaluation #2: 12/19/20 14:32 On reevaluation the patient states she is feeling much better. IV fluids and Bentyl have been given she is no longer having any pain. Repeat abdominal exam is soft nontender. EKG and urine is pending Reevaluation #3: 12/19/20 15:40 ED Medical Decision Making - Lab Data Result diagrams: 12/18/20 21:32 12/18/20 21:32 Lab Results 12/18/20 12/18/20 12/19/20 Range/Units 21:32 21:32 13:08 WBC 6.3 (4.5-11.0) K/mm3 RBC 4.64 (3.65-5.03) M/mm3 Hgb 14.6 H (10.1-14.3) gm/dl Hct 42.7 (30.3-42.9) % MCV 92 (79-97) fl MCH 31 (28-32) pg MCHC 34 (30-34) % RDW 14.0 (13.2-15.2) % Plt Count 400 (140-440) K/mm3 Lymph % (Auto) 43.2 H (13.4-35.0) % Randall % (Auto) 6.9 (0.0-7.3) % Eos % (Auto) 0.7 (0.0-4.3) % Baso % (Auto) 0.7 (0.0-1.8) % Lymph # (Auto) 2.7 (1.2-5.4) K/mm3 Randall # (Auto) 0.4 (0.0-0.8) K/mm3 Eos # (Auto) 0.0 (0.0-0.4) K/mm3 Baso # (Auto) 0.0 (0.0-0.1) K/mm3 Seg Neutrophils % 48.5 (40.0-70.0) % Seg Neutrophils # 3.0 (1.8-7.7) K/mm3 Sodium 132 L (137-145) mmol/L Potassium 3.9 (3.6-5.0) mmol/L Chloride 100.7 (98-107) mmol/L Carbon Dioxide 15 L (22-30) mmol/L Anion Gap 20 mmol/L BUN 15 (7-17) mg/dL Creatinine 0.7 (0.6-1.2) mg/dL Estimated GFR > 60 ml/min BUN/Creatinine Ratio 21 % Glucose 80 (65-100) mg/dL Calcium 9.4 (8.4-10.2) mg/dL Total Bilirubin 0.30 (0.1-1.2) mg/dL Direct Bilirubin < 0.2 (0-0.2) mg/dL Indirect Bilirubin 0.1 mg/dL AST 18 (5-40) units/L ALT 9 (7-56) units/L Alkaline Phosphatase 72 (35-129) units/L Troponin T < 0.010 (0.00-0.029) ng/mL Total Protein 7.5 (6.3-8.2) g/dL Albumin 4.6 (3.9-5) g/dL Albumin/Globulin Ratio 1.6 % Lipase 38 (13-60) units/L - EKG Data Interpretation: normal EKG (NSR with a ventricular rate [address] orT wave abnroamlities, no STEMI ) - Radiology Data Radiology results: report reviewed, image reviewed CT abdomen pelvis w con INDICATION: October 25, 2020. COMPARISON: None TECHNIQUE: Abdominal and pelvic CT exam performed. [facility] dose reduction for ALARA by means of automated exposure control. FINDINGS: CT ABDOMEN and PELVIS: Lung Bases: No significant abnormality. Liver: No significant abnormality. Biliary: No significant abnormality. Spleen: No significant abnormality. Pancreas: No significant abnormality. Adrenals: No significant abnormality. Kidneys: No significant abnormality. Lymphatics: No lymphadenopathy. Vasculature: No significant abnormality. Bowel: No imaging evidence of active inflammatory bowel disease. Appendix is surgically absent. Pelvis: No significant abnormality. Osseous Structures: No aggressive osseous lesion. T11, T12, L1 chronic appearing vertebral body height loss. No acute appearing vertebral body height loss. S-shaped scoliotic curvature of the spine. Additional Findings: None IMPRESSION: 1. No acute findings in the abdomen or pelvis. Signer Name: Danis Miguel MD Signed: 12/19/2020 1:59 PM Workstation Name: [id number] Transcribed By: CS Dictated By: Danis Miguel MD Electronically Authenticated By: Danis Miguel MD Signed Date/Time: 12/19/20 7122 - Medical Decision Making 70-year-old female presented to emergency department chief complaint generalized abdominal pain with a history of Crohn's disease. Labs returned relatively normal. EKG was ordered due to her having epigastric pain with a troponin and both were normal. Symptoms completely resolved after Bentyl IV fluids and she is drinking and eating and feels much better and wants to go home. I will send her home with Bentyl and Zofran and recommend follow-up with her GI doctor which she does have follow-up next week. She was instructed to return to the emergency department she develops any changing or worsening symptoms. She verbalized understanding of the diagnosis, treatment plan and follow-up instructions and all of her questions were answered. - Differential Diagnosis colitis, SBO, enteritis, cholecystitis Critical care attestation.: If time is entered above; I have spent that time in minutes in the direct care of this critically ill patient, excluding procedure time. ED Disposition Clinical Impression: Nonspecific abdominal pain, Nausea, vomiting and diarrhea Disposition: 01 HOME / SELF CARE / HOMELESS Is pt being admited?: No Condition: Stable Instructions: Abdominal Pain (ED), Nausea and Vomiting, Adult, Abdominal Pain, Adult, [id number] Prescriptions: Dicyclomine [Bentyl] 10 mg PO QID #30 capsule Ondansetron [Zofran Odt] 4 mg PO Q8HR #30 tab.modis Referrals: PRIMARY CARE, [Primary Care Provider] - 3-5 Days Time of Disposition: 16:32
--- NOTE | 2020-12-19 14:04 | Cat Scan Report ---
CT abdomen pelvis w con INDICATION: October 25, 2020. COMPARISON: None TECHNIQUE: Abdominal and pelvic CT exam performed. All CT scans at this location are performed using CT dose reduction for ALARA by means of automated exposure control. FINDINGS: CT ABDOMEN and PELVIS: Lung Bases: No significant abnormality. Liver: No significant abnormality. Biliary: No significant abnormality. Spleen: No significant abnormality. Pancreas: No significant abnormality. Adrenals: No significant abnormality. Kidneys: No significant abnormality. Lymphatics: No lymphadenopathy. Vasculature: No significant abnormality. Bowel: No imaging evidence of active inflammatory bowel disease. Appendix is surgically absent. Pelvis: No significant abnormality. Osseous Structures: No aggressive osseous lesion. T11, T12, L1 chronic appearing vertebral body heigh t loss. No acute appearing vertebral body height loss. S-shaped scoliotic curvature of the spine. Additional Findings: None IMPRESSION: 1. No acute findings in the abdomen or pelvis. Signer Name: Danis Miguel MD Signed: 12/19/2020 1:59 PM Workstation Name: [id number]
[2020-12-19 15:43] VITALS: BP 144/76
[2020-12-19 16:19] LABS: Bilirubin,Urine NEG (Negative); Blood,Urine SM (Negative); Color,Urine Yellow (Yellow); Mucus,Urine FEW /HPF; Urobilinogen,Urine < 2.0 mg/dL (<2.0)
--- NOTE | 2020-12-24 13:20 | Electrocardiograph Report ---
[facility] Test Date: 2020-12-19 Test Time: 15:02:31 Pat Name: TEN DUBON Department: Room: Gender: F Document Imaging Manager: NURSE : 1950 Requested By: ANEUDY HAND Order Number: [id number] Reading MD: Miguel Fermin Measurements Intervals [place] Rate: 61 P: 53 MS: 168 QRS: 29 QRSD: 91 T: 69 QT: 427 QTc: 430 Interpretive Statements Sinus rhythm No previous ECG available for comparison Electronically Signed On 12-24-2020 13:19:48 EDT by Miguel Fermin
== END 2020-12-19 16:40 | disposition home or self-care (01) ==
LOC: ED 16:02
DX: R10.84 Generalized abdominal pain (principal); R11.2 Nausea with vomiting, unspecified; R19.7 Diarrhea, unspecified; I10 Essential (primary) hypertension; F32.9 Major depressive disorder, single episode, unspecified; F41.9 Anxiety disorder, unspecified; F17.200 Nicotine dependence, unspecified, uncomplicated; Z79.899 Other long term (current) drug therapy
CPT/HCPCS: 36415; 74177; 80048; 80076; 81001; 83690; 84484; 85025; 87086; 96372; 99284; J0500; J7030; Q9967; 93005

== ENCOUNTER 2021-05-13 13:07 | Emergency (ER) | payer MEDICARE ==
[2021-05-13] MEDS ORDERED: SODIUM CHLORIDE 0.9% 1000 ML 1,000 ML IV ONE ×2 (13:43→15:52)
[2021-05-13] MEDS ORDERED: ONDANSETRON 4 MG/2 ML INJ IV ONE (13:43)
--- NOTE | 2021-05-13 13:47 | Event Note ---
ED Screening Note Date of service: 05/13/21 Time: 13:44 ED Screening Note: Patient presents with complaints of abdominal pain, nausea and vomiting, and dizziness x5 days Past medical history includes bipolar disorder and Crohn's disease She denies any history of abdominal surgeries, hematemesis/coffee-ground emesis, melena/hematochezia, or chest pain/shortness of breath Patient has noted tremor, she denies any alcohol use Patient states her symptoms seem to begin after she had the COVID booster shot This initial assessment/diagnostic orders/clinical plan/treatment(s) is/are subject to change based on patients health status, clinical progression and re- assessment by fellow clinical providers in the ED. Further treatment and workup at subsequent clinical providers discretion. Patient/guardian urged not to elope from the ED as their condition may be serious if not clinically assessed and managed. Initial orders include: ekg meds CT UA
--- NOTE | 2021-05-13 14:12 | Event Note ---
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 Patient presented with a 4 to 5-day history of GI complaints including vomiting nausea and diarrhea. She was tremulous and shaky. During the course of the history, it is determined that she has not had her Klonopin in for 5 days. She ran out. Her symptoms started after she went on Klonopin. She has had no sick contacts. On exam, patient is frail and tremulous. She is in no respiratory distress. Heart was regular. Lungs are clear. Abdomen was mildly tender without rebound or guarding. Clinically, the patient seems to be in benzodiazepine withdrawal which would coincide with her running out of Klonopin. We will still look at electrolytes. She is on lithium, so we will still check for lithium toxicity. I have a low clinical suspicion that those will be the case. I do not believe CT is indicated at this time. She has no dysuria frequency that would suggest urinary tract infection.
--- NOTE | 2021-05-13 14:12 | Emergency Department Report ---
<WILSEJALDIVYA BAILON - Last Filed: 05/13/21 16:17> ED General Adult HPI - General Chief complaint: Abdominal Pain Stated complaint: ABD PAIN Time Seen by Provider: 05/13/21 13:11 - History of Present Illness Initial comments: Patient presents with a four 5-day history of GI upset including nausea and vomiting. She has no hematemesis or coffee-ground emesis. She states she has had loose stools but does not frankly call it diarrhea. She has had some body aches as well. Patient states she just does not feel well. She is very shaky. Patient does not know what is causing this. She has had no sick contact. She has not been on antibiotics lately. She states that she has not really eaten an ything that would have made her consider food poisoning. She admits to eating a hamburger at a [employer] in a [facility] and stated that it tasted off but is not certain it was bad. It should be noted the patient ran out of her Klonopin prior to symptom onset and has not had that in several days. She was supposed to be getting that from her physician today but it has not been available according to her. - Related Data Previous Rx's Medication Instructions Recorded Last Taken Type Dicyclomine [Bentyl] 20 mg PO Q6H PRN #24 tablet 06/12/19 Unknown Rx Famotidine [Pepcid] 20 mg PO Q12H #60 tablet 06/12/19 Unknown Rx Ondansetron [Zofran Odt] 4 mg PO Q6HR PRN #20 tab.rapdis 06/12/19 Unknown Rx Ciprofloxacin HCl [Ciprofloxacin 500 mg PO Q12HR #14 tab 07/07/19 Unknown Rx TAB] Metoclopramide [Reglan] 10 mg PO TID PRN #20 tab 07/07/19 Unknown Rx Ondansetron [Zofran Odt] 4 mg PO Q8HR PRN #14 tab.rapdis 07/07/19 Unknown Rx Ondansetron [Zofran Odt] 4 mg PO Q8HR PRN #20 tab.rapdis 07/09/19 Unknown Rx cephALEXin [Keflex] 500 mg PO Q12HR #10 cap 07/09/19 Unknown Rx Dicyclomine [Bentyl] 10 mg PO QID #30 capsule 12/19/20 Unknown Rx Nitrofurantoin [place]/M-Cryst 100 mg PO Q12HR #14 capsule 12/19/20 Unknown Rx [Macrobid CAP] Ondansetron [Zofran Odt] 4 mg PO Q8HR #30 tab.rapdis 12/19/20 Unknown Rx Ondansetron [Zofran Odt] 4 mg PO Q8HR PRN #10 tab.rapdis 05/13/21 Unknown Rx clonazePAM [ Klonopin] 0.5 mg PO BID PRN #10 tab 05/13/21 Unknown Rx Allergies Allergy/AdvReac Type Severity Reaction Status Date / Time No Known Allergies Allergy Verified 05/13/21 13:09 ED Review of Systems Comment: All other systems reviewed and negative Constitutional: denies: fever Eyes: denies: vision change ENT: denies: throat pain Respiratory: denies: cough Cardiovascular: denies: chest pain Endocrine: denies: unexplained weight loss Gastrointestinal: as per HPI Genitourinary: denies: dysuria Musculoskeletal: denies: back pain Skin: denies: rash Neurological: denies: headache Psychiatric: anxiety Hematological/Lymphatic: denies: easy bruising ED Past Medical Hx - Past Medical History Hx Hypertension: Yes Hx Psychiatric Treatment: Yes - Family History Family history: hypertension - Social History Smoking Status: Current Every Day Smoker - Medications Home Medications: Home Medications Medication Instructions Recorded Confirmed Last Taken Type Dicyclomine [Bentyl] 20 mg PO Q6H PRN #24 tablet 06/12/19 Unknown Rx Famotidine [Pepcid] 20 mg PO Q12H #60 tablet 06/12/19 Unknown Rx Ondansetron [Zofran Odt] 4 mg PO Q6HR PRN #20 tab.rapdis 06/12/19 Unknown Rx Ciprofloxacin HCl [Ciprofloxacin 500 mg PO Q12HR #14 tab 07/07/19 Unknown Rx TAB] Metoclopramide [Reglan] 10 mg PO TID PRN #20 tab 07/07/19 Unknown Rx Ondansetron [Zofran Odt] 4 mg PO Q8HR PRN #14 tab.rapdis 07/07/19 Unknown Rx Ondansetron [Zofran Odt] 4 mg PO Q8HR PRN #20 tab.rapdis 07/09/19 Unknown Rx cephALEXin [Keflex] 500 mg PO Q12HR #10 cap 07/09/19 Unknown Rx Dicyclomine [Bentyl] 10 mg PO QID #30 capsule 12/19/20 Unknown Rx Nitrofurantoin [place]/M-Cryst 100 mg PO Q12HR #14 capsule 12/19/20 Unknown Rx [Macrobid CAP] Ondansetron [Zofran Odt] 4 mg PO Q8HR #30 tab.rapdis 12/19/20 Unknown Rx Ondansetron [Zofran Odt] 4 mg PO Q8HR PRN #10 tab.rapdis 05/13/21 Unknown Rx clonazePAM [ Klonopin] 0.5 mg PO BID PRN #10 tab 05/13/21 Unknown Rx ED Physical Exam - General Limitations: No Limitations, Other (Pulse ox noted and normal) General appearance: alert, in no apparent distress - Head Head exam: Present: atraumatic, normocephalic - Eye Eye exam: Present: normal appearance. Absent: EOMI - ENT ENT exam: Present: mucous membranes dry, normal external ear exam - Neck Neck exam: Present: normal inspection. Absent: meningismus - Respiratory Respiratory exam: Present: normal lung sounds bilaterally. Absent: respiratory distress - Cardiovascular Cardiovascular Exam: Present: regular rate, normal rhythm - GI/Abdominal GI/Abdominal exam: Present: soft, tenderness (Diffuse and mild). Absent: distended, guarding, rebound, pulsatile mass - Extremities Exam Extremities exam: Present: normal capillary refill. Absent: pedal edema - Back Exam Back exam: Absent: CVA tenderness (R), CVA tenderness (L) - Neurological Exam Neurological exam: Present: alert, oriented X3, CN II-XII intact, other (Diffuse mild tremor noted). Absent: motor sensory deficit - Psychiatric Psychiatric exam: Present: anxious - Skin Skin exam: Present: warm, dry ED Medical Decision Making - Lab Data Result diagrams: 05/13/21 14:00 05/13/21 14:00 Critical Care Time: No ED Disposition Clinical Impression: Benzodiazepine withdrawal, Nausea and vomiting Disposition: HOME / SELF CARE / HOMELESS Condition: Stable Instructions: Abdominal Pain (ED), Benzodiazepine Withdrawal, Nausea and Vomiting, Adult, [id number] Prescriptions: clonazePAM [ Klonopin] 0.5 mg PO BID PRN #10 tab PRN Reason: Anxiety Ondansetron [Zofran Odt] 4 mg PO Q8HR PRN #10 tab.rapdis PRN Reason: Nausea Referrals: PRIMARY CARE, [Primary Care Provider] - 2-3 Days <GINA GUERRERO - Last Filed: 05/13/21 18:13> ED General Adult HPI - General Source: patient, EMS Mode of arrival: Ambulatory Limitations: No Limitations ED Review of Systems ROS: Stated complaint: ABD PAIN Other details as noted in HPI ED Past Medical Hx - Past Medical History Hx Hypertension: Yes Hx Psychiatric Treatment: Yes (depression) Additional medical history: anxiety,depression - Social History Smoking Status: Current Every Day Smoker Substance Use Type: None ED Physical Exam - General Limitations: No Limitations - GI/Abdominal GI/Abdominal exam: Present: tenderness ED Course Vital Signs 05/13/21 13:08 Temperature 98.1 F Pulse Rate 69 Respiratory 19 Rate Blood Pressure 158/75 [Left] O2 Sat by Pulse 98 Oximetry ED Medical Decision Making - Lab Data Result diagrams: 05/13/21 14:00 05/13/21 14:00 Lab Results 05/13/21 05/13/21 05/13/21 Range/Units 14:00 14:00 16:00 WBC 6.6 (4.5-11.0) K/mm3 RBC 4.11 (3.65-5.03) M/mm3 Hgb 12.0 (10.1-14.3) gm/dl Hct 36.9 (30.3-42.9) % MCV 90 (79-97) fl MCH 29 (28-32) pg MCHC 32 (30-34) % RDW 12.7 L (13.2-15.2) % Plt Count 486 H (140-440) K/mm3 Lymph % (Auto) 18.6 (13.4-35.0) % [place] % (Auto) 4.1 (0.0-7.3) % Eos % (Auto) 0.2 (0.0-4.3) % Baso % (Auto) 0.3 (0.0-1.8) % Lymph # (Auto) 1.2 (1.2-5.4) K/mm3 [place] # (Auto) 0.3 (0.0-0.8) K/mm3 Eos # (Auto) 0.0 (0.0-0.4) K/mm3 Baso # (Auto) 0.0 (0.0-0.1) K/mm3 Seg Neutrophils % 76.8 H (40.0-70.0) % Seg Neutrophils # 5.1 (1.8-7.7) K/mm3 Sodium 136 L (137-145) mmol/L Potassium 5.1 H (3.6-5.0) mmol/L Chloride 100.2 (98-107) mmol/L Carbon Dioxide 20 L (22-30) mmol/L Anion Gap 21 mmol/L BUN 10 (7-17) mg/dL Creatinine 0.6 (0.6-1.2) mg/dL Estimated GFR > 60 ml/min BUN/Creatinine Ratio 17 % Glucose 110 H (65-100) mg/dL Calcium 9.8 (8.4-10.2) mg/dL Total Bilirubin 0.20 (0.1-1.2) mg/dL AST 19 (5-40) units/L ALT 12 (7-56) units/L Alkaline Phosphatase 69 (35-129) units/L Total Protein 7.3 (6.3-8.2) g/dL Albumin 4.7 (3.9-5) g/dL Albumin/Globulin Ratio 1.8 % Lipase 31 (13-60) units/L [place] 0.3 (0.0-1.2) mmol/L - Medical Decision Making Patient's symptoms resolved with 1 L normal saline and Klonopin orally. Discussed presumptive diagnosis of benzodiazepine withdrawal, care plan, and signs and symptoms that should prompt immediate return to ED with patient who verbalizes understanding. She is otherwise well-appearing, her vitals are within normal limits, she is stable for discharge home Critical care attestation.: If time is entered above; I have spent that time in minutes in the direct care of this critically ill patient, excluding procedure time. ED Disposition Is pt being admited?: No
[2021-05-13 15:05] LABS: Basophils % (Auto) 0.3 % (0.0-1.8); Eosinophils % (Auto) 0.2 % (0.0-4.3); Hematocrit 36.9 % (30.3-42.9); Lymphocytes # (Auto) 1.2 K/mm3 (1.2-5.4); Lymphocytes % (Auto) 18.6 % (13.4-35.0); Mean Corpuscular HGB Conc 32 % (30-34); Mean Corpuscular Volume 90 fl (79-97); Monocytes # (Auto) 0.3 K/mm3 (0.0-0.8); Monocytes % (Auto) 4.1 % (0.0-7.3); Platelet Count 486 K/mm3 (140-440); Red Blood Count 4.11 M/mm3 (3.65-5.03); Red Cell Distribution Width 12.7 % (13.2-15.2)
[2021-05-13 15:18] LABS: Alanine Aminotransferase 12 units/L (7-56); Albumin 4.7 g/dL (3.9-5); BUN/Creatinine Ratio 17; Blood Urea Nitrogen 10 mg/dL (7-17); Calcium 9.8 mg/dL (8.4-10.2); Hemolysis Index 16
[2021-05-13] MEDS ORDERED: clonazePAM 0.5 MG TAB PO ONE (15:53)
[2021-05-13 18:15] VITALS: BP 106/76
== END 2021-05-13 18:15 | disposition home or self-care (01) ==
LOC: ED 13:07
DX: R11.2 Nausea with vomiting, unspecified (principal); F13.239 Sedative, hypnotic or anxiolytic dependence with withdrawal, unspecified; I10 Essential (primary) hypertension; F17.200 Nicotine dependence, unspecified, uncomplicated
CPT/HCPCS: 36415; 80053; 80178; 83690; 85025; 96361; 96374; 99284; J2405; J7030; Q0162